=== PATIENT | male | born 1975 | race Native Hawaiian/Other Pacific Islander ===

== ENCOUNTER 2017-04-29 06:56 | Emergency (ER) | payer SELFPAY ==
[~2017-04-29] VITALS: Ht 177.8 cm; Wt 97.5 kg
[2017-04-29] MEDS ORDERED: GENVOYA TABLET (07:05)
[2017-04-29] MEDS ORDERED: VIAGRA 100 MG TABLET (07:05)
[2017-04-29] MEDS ORDERED: HEPATITIS B VACCINE 20 MCG/ML (07:05)
[2017-04-29] MEDS ORDERED: ZOLPIDEM TARTRATE 5 MG TABLET (07:05)
[2017-04-29] MEDS ORDERED: LOSARTAN-HCTZ 50-12.5 MG TAB (07:05)
[2017-04-29 07:23] LABS: CARBON DIOXIDE 29 mmol/L (21-32); CHLORIDE 104 mmol/L (98-107); CREATININE 1.4 mg/dL (0.6-1.3); GLUCOSE 122 mg/dL (74-106); POTASSIUM 3.5 mmol/L (3.5-5.1); UREA NITROGEN, BLOOD 14 mg/dL (7-18)
[2017-04-29 07:31] LABS: BASOPHILS # (AUTO) 0.1 K/uL (0.0-8.0); BASOPHILS % (AUTO) 0.9 % (0.0-2.0); EOSINOPHILS # (AUTO) 0.2 K/uL (0.0-0.7); EOSINOPHILS % (AUTO) 2.1 % (0.0-7.0); HEMATOCRIT 42.6 % (36.7-47.1); HEMOGLOBIN 15.4 g/dL (12.5-16.3); LYMPHOCYTES # (AUTO) 1.8 K/uL (20.0-40.0); LYMPHOCYTES % (AUTO) 25.5 % (20.5-51.5); MEAN CORPUSCULAR HEMOGLOBIN 33.4 uug (23.8-33.4); MEAN CORPUSCULAR HGB CONC 36 g/dL (32.5-36.3); MEAN CORPUSCULAR VOLUME 92.2 fL (73.0-96.2); MONOCYTES # (AUTO) 0.6 K/uL (2.0-10.0); MONOCYTES % (AUTO) 9.1 % (0.0-11.0); NEUTROPHILS # (AUTO) 4.4 K/uL (1.8-8.9); NEUTROPHILS % (AUTO) 62.4 % (38.5-71.5); PLATELET COUNT (AUTO) 200 K/uL (152-348); RED BLOOD CELL COUNT(AUTO) 4.62 MIL/uL (4.06-5.63)
[2017-04-29 07:36] LABS: ALANINE AMINOTRANSFERASE 57 U/L (16-63); ALKALINE PHOSPHATASE 70 U/L (50-136); ASPARTATE AMINOTRANSFERASE 19 U/L (15-37); BILIRUBIN,DIRECT 0.1 mg/dL (0.0-0.2); BILIRUBIN,TOTAL 0.5 mg/dL (0.2-1.0); TOTAL PROTEIN, SERUM 7.3 g/dL (6.4-8.2)
[2017-04-29 07:38] LABS: ACETAMINOPHEN < 2.0 ug/mL (10-30)
[2017-04-29 07:49] LABS: ETHANOL < 3 MG/DL (0-0)
--- NOTE | 2017-04-29 08:56 | NUR ---
Medically & psychiatrically cleared to go home per Dr Nguyen. Patient discharged to home in stable conditon. Written and verbal after care instructions given to patient and friend. Patient verbalizes understanding of instructions.
== END 2017-04-29 08:59 | disposition home or self-care (01) ==
LOC: ER 07:00
DX: R45.851 Suicidal ideations (principal); I10 Essential (primary) hypertension; E78.5 Hyperlipidemia, unspecified; Z88.1 Allergy status to other antibiotic agents
CPT/HCPCS: 36415; 80048; 80076; 85025; 99284; A4663; G0480 ×2; G0481

== ENCOUNTER 2017-11-08 18:20 | Emergency (ER) | payer BC ==
[~2017-11-08] VITALS: Ht 177.8 cm; Wt 88.5 kg
[~2017-11-08 18:20] MED LIST: GENVOYA TABLET; HEPATITIS B VACCINE 20 MCG/ML; LOSARTAN-HCTZ 50-12.5 MG TAB; VIAGRA 100 MG TABLET; ZOLPIDEM TARTRATE 5 MG TABLET
[2017-11-08] MEDS ORDERED: OXYCODONE/APAP 5-325 MG TABLET ONE ×2 (18:44→19:54)
[2017-11-08] MEDS ORDERED: DIPHENOXYLATE HCL/ATROP SULF TABLET ONE (18:44)
[2017-11-08] MEDS ORDERED: ONDANSETRON ODT 4 MG TAB.RAPDIS ONE (18:44)
[2017-11-08] MEDS ORDERED: ONDANSETRON ODT 4 MG TAB.RAPDIS SL ONE (18:45)
[2017-11-08] MEDS ORDERED: OXYCODONE/APAP 5-325 MG TABLET PO ONE ×2 (18:45→20:00)
[2017-11-08] MEDS ORDERED: DIPHENOXYLATE HCL/ATROP SULF TABLET PO ONE (18:45)
[2017-11-08] MEDS ORDERED: DICYCLOMINE HCL 10 MG/5 ML UDC LIQ ONE (18:45)
[2017-11-08] MEDS ORDERED: DICYCLOMINE HCL 20 MG TABLET PO SCH (18:45)
[2017-11-08] MEDS ORDERED: AZITHROMYCIN 250 MG TABLET PO ONE (19:00)
[2017-11-08] MEDS ORDERED: CEFTRIAXONE 500 MG VIAL IM ONE (19:00)
[2017-11-08] MEDS ORDERED: CEFTRIAXONE 500 MG VIAL ONE (19:10)
[2017-11-08] MEDS ORDERED: LIDOCAINE 1%-EPI 1:100,000 20 ML VIAL ONE (19:10)
[2017-11-08] MEDS ORDERED: AZITHROMYCIN 250 MG TABLET ONE (19:11)
[2017-11-08 19:21] LABS: *BILIRUBIN,URIN NEGATIVE (NEGATIVE); *BLOOD, URINE 2+ (NEGATIVE); *CLARITY,URINE CLEAR (CLEAR); *COLOR,URINE DARK YELLOW (YELLOW); *KETONES,URINE NEGATIVE (NEGATIVE); *PROTEIN,URINE 2+ (NEGATIVE); LEUKOCYTE ESTERASE ,URINE NEGATIVE (NEGATIVE); NITRITE, URINE NEGATIVE (NEGATIVE); PH,URINE 6.5 (5.0-8.0); UGLUCOSE NEGATIVE (NEGATIVE)
[2017-11-08 19:26] LABS: MUCUS,URINE FEW /LPF (0-FEW); WBC,URINE 0-3 /HPF (0-3)
[2017-11-08 20:55] VITALS: BP 127/70
== END 2017-11-08 20:56 | disposition home or self-care (01) ==
LOC: ER 18:23
DX: R19.7 Diarrhea, unspecified (principal); R51 Headache; R30.0 Dysuria; R31.9 Hematuria, unspecified; E78.5 Hyperlipidemia, unspecified; I10 Essential (primary) hypertension; Z88.1 Allergy status to other antibiotic agents
CPT/HCPCS: 81001; 96372; 99284; A4663; J0696; J3490; Q0144; Q0162